=== PATIENT | female | born 1990 | race Caucasian/White ===

== ENCOUNTER 2021-07-13 10:24 | Emergency (ER) | payer OTHER, SELFPAY ==
[2021-07-13 10:40] VITALS: BP 99/70; PULSE 83; RESP 16; TEMP 36.6; O2SAT 100
--- NOTE | 2021-07-13 11:40 | ED.URI ---
HPI - URI/Sore Throat General Chief Complaint: Headache Stated Complaint: hot achey headache Source: patient and RN notes reviewed Mode of arrival: ambulatory History of Present Illness HPI Narrative: This is a 30-year-old female that presented to urgent care with complaints of headache, nausea vomiting, fatigue, lymph node enlargement, she notes it feels like pins are in her skin. 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 She has not been vaccinated. The patient denies SOB, CP, palpitation, extremity numbness, lightheadedness, dizziness, constipation, diarrhea, chills, or fever. She did recently get treated for sinus infection with Augmentin. Related Data Home Medications Medication Instructions Recorded Confirmed bupropion HCl 100 mg PO TID 07/13/21 07/13/21 hydroxyzine HCl 25 mg PO TID PRN 07/13/21 07/13/21 Allergies Allergy/AdvReac Type Severity Reaction Status Date / Time No Known Allergies Allergy Verified 07/13/21 10:47 Review of Systems Review of Systems: A 14 organ system Review of Systems was performed and pertinent positives included in the HPI, otherwise remaining ROS is negative. [facility] Family History Family History (Updated 07/13/21 @ 11:41 by LEELEE Winkler) Other Family history non-contributory Exam Narrative: GENERAL: This is a well-nourished, well-developed patient, in no apparent distress. HEAD: normocephalic, atraumatic. EYES: PERRL. Sclera clear/white. Vision is grossly intact. EARS: External ears normal, auditory canals clear and without drainage, TMs normal without perforation. Hearing grossly intact. NOSE: External nose normal with no obvious nasal discharge, nares without redness, no rhinorrhea. THROAT: Mucous membranes moist, posterior pharynx with erythema. NECK: Neck supple, non-tender without lymphadenopathy, masses or thyromegaly. CARDIOVASCULAR: Regular rate and rhythm without murmurs, gallops, or rubs. RESPIRATORY: Clear to auscultation. Breath sounds equal bilaterally. No wheezes, rales, or rhonchi. GASTROINTESTINAL: Abdomen soft, non-tender, nondistended. Bowel sounds are active. No hepato-splenomegaly, or palpable masses. No guarding. SKIN: warm, intact with no suspicious lesions or rash, good texture and turgor. NEURO: awake, alert, and oriented to person, place and time. There were no obvious focal neurologic abnormalities. Steady gait EXTREMITIES: Normal range of motion. No edema. No calf tenderness. Negative Homans sign bilaterally. BACK: Nontender without deformity or crepitance. No flank tenderness. Course Course Emergency Course: Patient will discharge home with Flonase, Claritin, guaifenesin treated for viral infection Vital Signs Vital signs: Vital Signs Temperature 97.9 F 07/13/21 10:40 Pulse Rate 83 07/13/21 10:40 Respiratory Rate 16 07/13/21 10:40 Blood Pressure 99/70 L 07/13/21 10:40 Pulse Oximetry 100 07/13/21 10:40 Temperature 97.9 F 07/13/21 10:40 Pulse Rate 83 07/13/21 10:40 Respiratory Rate 16 07/13/21 10:40 Blood Pressure 99/70 L 07/13/21 10:40 Pulse Oximetry 100 07/13/21 10:40 MDM - URI/Sore Throat Differential Diagnosis Differential diagnosis: Likely upper respiratory infection, sinusitis and viral infection Discharge Plan Discharge Clinical Impression: Viral infection Patient Disposition: Home, Self-Care Condition: Stable Instructions: Antibiotic Form, Viral Syndrome (ED) Additional Instructions: This is likely viral illness, no antibiotic is needed at this time. Treatment is aimed toward your specific symptoms. You must treat your symptoms in order to feel better while the virus runs it's course. Recommend antihistamine such as Benadryl at night time and Claritin/Zyrtec/Betzy during the day Use inhaler as needed for cough, wheezing, shortness of breath or chest tightness. -Hot steamy showers in the morning to help open up your sinuses -Hot tea with lemon and honey. A teaspoon of honey may help as a
== END 2021-07-13 11:46 | disposition home or self-care (01) ==
PROVIDERS: Emergency Provider Nurse Practitioner
DX: B34.9 Viral infection, unspecified (principal); Z20.822 Contact with and (suspected) exposure to COVID-19
CPT/HCPCS: 99213; G0463

== ENCOUNTER → 2021-07-14 08:32 | Outpatient (CLI) | payer OTHER, SELFPAY ==
[2021-07-15 13:33] LABS: SARS-CoV-2 RNA PCR Positive
== END ==
PROVIDERS: Visit Provider Nurse Practitioner
DX: U07.1 COVID-19 (principal)
CPT/HCPCS: C9803; U0003; U0005

== ENCOUNTER 2023-03-19 10:19 | Emergency (ER) | payer OTHER, SELFPAY ==
--- NOTE | ~2023-03-19 | XR_ITS ---
EXAMINATION: XR chest 2V DATE: 03/19/2023 10:57 INDICATION: Shortness of breath and fatigue TECHNIQUE: PA and lateral views of the chest are obtained. COMPARISON: None available FINDINGS: The lungs are free of acute opacities. No pleural effusion or pneumothorax. The cardiomedia stinal silhouette is normal. The visualized bones and soft tissues are unremarkable. IMPRESSION: 1. No acute cardiopulmonary abnormality. Reviewed, dictated and finalized at location A.
[2023-03-19 10:31] VITALS: BP 106/63; PULSE 78; RESP 20; TEMP 36.7; O2SAT 100
--- NOTE | 2023-03-19 10:49 | ED.GENADULT ---
HPI - General Adult General Chief complaint: Upper Respiratory Infection Stated complaint: shortness of breath,fatigue,flu Source: patient Mode of arrival: ambulatory Limitations: no limitations History of Present Illness HPI narrative: Patient presents for evaluation of sick symptoms for last few weeks. She tested positive for influenza a on 03/09/2023. She had nausea, vomiting, diarrhea at that time. She states now her primary symptoms are fever, headache, hot flashes, productive cough of brown sputum with associated shortness of breath. She still has some diarrhea and nausea but vomiting has resolved. She is not taking any medications to assist with her symptoms. She does smoke marijuana. She had a negative COVID test on 03/09/23. Surgical history includes tonsillectomy. Related Data Home Medications Medication Instructions Recorded Confirmed No Home Medications 03/19/23 03/19/23 Allergies Allergy/AdvReac Type Severity Reaction Status Date / Time No Known Allergies Allergy Verified 03/19/23 10:26 Review of Systems Review of Systems: CONSTITUTIONAL: Reports fever. Denies chills EYES: Denies visual changes, redness, or discharge. ENT: Denies rhinorrhea, congestion, sore throat, or otalgia. CARDIOVASCULAR: Denies chest pain, palpitations, or edema. RESPIRATORY: Denies cough or dyspnea. GASTROINTESTINAL: Denies abdominal pain, nausea, vomiting, or diarrhea. GENITOURINARY: Denies dysuria or hematuria. SKIN: Denies rash or itching. MUSCULOSKELETAL: Denies back pain, joint pain, or myalgia. NEUROLOGIC: Denies headache, numbness, dizziness, or weakness. PSYCHIATRIC: Denies anxiety or depression. [facility] Past Medical History Medical History No pertinent past medical history Surgical History Surgical History No pertinent past surgical history Family History Family History Mother Family history non-contributory Social History Social History Substance use: current Substance use type: marijuana Living arrangements: alone Gender identity (if verbalized by the patient): Female Spiritual care concerns: No Exam Narrative: GENERAL: Well-appearing, well-nourished, and in no acute distress. HEAD: Normocephalic, atraumatic. EYES: PERRLA and EOMI. ENT: Nares clear, no rhinorrhea or epistaxis. Mucous membranes moist. Tonsils are absent. There is mild posterior pharyngeal erythema. Bilateral TMs pearly alicea nonbulging NECK: Supple. No adenopathy or masses. No carotid bruits or JVD CHEST: Clear to auscultation. No respiratory distress. No wheezes rales or rhonchi HEART: Regular rate and rhythm. No murmur heard. Normal peripheral pulses. ABDOMEN: Soft, nontender, nondistended, normal active bowel sounds. EXTREMITIES: Normal range of motion. No edema. SKIN: Warm, dry, no rash. NEURO: No focal deficits. Alert and oriented x3. PSYCH: Normal mood and affect. Course Course Emergency Course: This is a 32-year-old female who presented for evaluation of sick symptoms. COVID and influenza were negative. Chest x-ray negative. Exam is consistent with acute viral syndrome. Recommend [id number] agents for symptom management. She already has zofran at home. Increase hydration. Follow up primary provider. Go to emergency department for worsening symptoms. Patient in agreement with plan of care Level of Care: Express Care Visit Vital Signs Vital signs: Vital Signs Temperature 36.7 C 03/19/23 10:31 Pulse Rate 78 03/19/23 10:31 Respiratory Rate 20 03/19/23 10:31 Blood Pressure 106/63 03/19/23 10:31 Pulse Oximetry 100 03/19/23 10:31 Oxygen Delivery Room Air 03/19/23 10:31 Temperature 36.7 C 03/19/23 10:31 Pulse Rate 78
== END 2023-03-19 11:25 | disposition home or self-care (01) ==
PROVIDERS: Emergency Provider Nurse Practitioner
DX: B34.9 Viral infection, unspecified (principal); Z20.822 Contact with and (suspected) exposure to COVID-19; F12.90 Cannabis use, unspecified, uncomplicated
CPT/HCPCS: 71046; 87426; 87804; 99213; C9803; G0463

== ENCOUNTER 2023-06-19 17:08 | Emergency (ER) | payer OTHER, SELFPAY ==
[2023-06-19 17:12] VITALS: BP 106/46; PULSE 93; RESP 18; TEMP 36.7; O2SAT 99
--- NOTE | 2023-06-19 17:55 | ED.ABDPAIN ---
HPI - Abdominal Pain General Chief Complaint: Abdominal Pain Stated Complaint: abd pain Source: patient Mode of arrival: ambulatory Limitations: no limitations History of Present Illness HPI narrative: Patient presents for evaluation of right lower quadrant abdominal pain for last 2-3 days. Pain is constant, cramping, rated 6 to 7/10 severity. She reports nausea without vomiting. She has experienced diarrhea. No blood or mucus in the stool. No urinary symptoms. No vaginal bleeding or discharge. She indicates no chance of as she is not sexually active with men. She has actually not been sexually active recently. No history of similar symptoms. Related Data Home Medications Medication Instructions Recorded Confirmed No Home Medications 03/19/23 06/19/23 Allergies Allergy/AdvReac Type Severity Reaction Status Date / Time No Known Allergies Allergy Verified 03/19/23 10:26 Review of Systems Review of Systems: CONSTITUTIONAL: Denies fever, chills, or sweats. EYES: Denies visual changes, redness, or discharge. ENT: Denies rhinorrhea, congestion, sore throat, or otalgia. CARDIOVASCULAR: Denies chest pain, palpitations, or edema. RESPIRATORY: Denies cough or dyspnea. GASTROINTESTINAL: Reports right lower quadrant abdominal pain, diarrhea and nausea. Denies vomiting GENITOURINARY: Denies dysuria or hematuria. SKIN: Denies rash or itching. MUSCULOSKELETAL: Denies back pain, joint pain, or myalgia. NEUROLOGIC: Denies headache, numbness, dizziness, or weakness. PSYCHIATRIC: Denies anxiety or depression. [facility] Past Medical History Medical History No pertinent past medical history Surgical History Surgical History No pertinent past surgical history Family History Family History Mother Family history non-contributory Social History Social History Substance use: current Substance use type: marijuana Living arrangements: alone Gender identity (if verbalized by the patient): Female Spiritual care concerns: No Exam Narrative: GENERAL: Well-appearing, well-nourished, and in no acute distress. HEAD: Normocephalic, atraumatic. EYES: PERRLA and EOMI. ENT: Nares clear, no rhinorrhea or epistaxis. Mucous membranes moist. Oropharynx without tonsillar hypertrophy exudate or other lesions. Bilateral TMs pearly alicea nonbulging NECK: Supple. No adenopathy or masses. No carotid bruits or JVD CHEST: Clear to auscultation. No respiratory distress. No wheezes rales or rhonchi HEART: Regular rate and rhythm. No murmur heard. Normal peripheral pulses. ABDOMEN: Soft, nondistended, normal active bowel sounds. Right lower quadrant tenderness without rebound or guarding. EXTREMITIES: Normal range of motion. No edema. SKIN: Warm, dry, no rash. NEURO: No focal deficits. Alert and oriented x3. PSYCH: Normal mood and affect. Course Course Emergency Course: This is a 32-year-old female who presented for evaluation of right lower quadrant pain. No evidence of infection in her urine today. She is not . I recommended she go to the hospital for further workup including labs and imaging. She was agreeable to plan. She requested be evaluated at [facility]. I contacted [facility] and spoke with RN, Indira. She indicates that Dr Hurtado will agree to accept pt to Dept there. Patient was updated throughout her stay here and was in agreement plan of care, including plans for transfer. Level of Care: Express Care Visit Vital Signs Vital signs: Vital Signs Temperature 36.7 C 06/19/23 17:12 Pulse Rate 93 06/19/23 17:12 Respiratory Rate 18 06/19/23 17:12 Blood Pressure 106/46 L 06/19/23 17:12 Pulse Oximetry 99 06/19/23 17:12 Oxygen Del
== END 2023-06-19 17:50 | disposition short-term general hospital (02) ==
PROVIDERS: Emergency Provider Nurse Practitioner
DX: R10.31 Right lower quadrant pain (principal); Z20.822 Contact with and (suspected) exposure to COVID-19
CPT/HCPCS: 81003; 87426; 87804; 99213; C9803; G0463

== ENCOUNTER 2024-10-16 08:35 | Outpatient (CLI) | payer OTHER, SELFPAY ==
--- OUTSIDE RECORDS SUMMARY | 2024-10-16 08:49 | XMS_ITS | Encounter Summary ---
Author Organization [facility] Address [address] [place] [address] Care Team Providers Care Top Stitcher Name Role Phone Kat Morrell MD Primary Care Provider [phone] Alicia Flowers Primary Care Provider + Rosalia Ridley DO Primary Care Provider [phone] Delio Rdz MD Unavailable [phone] No, Physician Primary Care Provider [phone] Tara Aaron NP Primary Care Provider Mumtaz Bruce NP Unavailable [phone] Encounter Details Date Type Department Care Team (Late st Contact Info) Description 02/15/2020 E-Visit [facility]/ Physicians [address] [place] [address] Mya Tyler, BUSINESS PROCESS COORDINATOR [address] [address] RE: E-Visit Submission: Cough Social History Tobacco Use Types Packs/Day Years Used Date Smoking Tobacco: Never Smokeless Tobacco: Never Alcohol Use Standard Drinks/Week Comments Yes 2 (1 standard drink = 0.6 oz pur e alcohol) AUDIT-C Answer Date Recorded Frequency of Alcohol Consumption 2-4 times a tue11/08/2018 Average Number of Drinks 3 or 4 019 Frequency of Binge Drinking Not on file 10/17 PHQ-2 Answer Date Recorded PHQ-2 Score 0 04/03/2019 Comments No Sex and Gender Information Value Date Recorded Sex Assigned at Not on file Legal Sex Female 11:56 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 Gender Identity Not on file Sexual Orientation Lesbian 07/27/2020 11 :23 AM CHEMICAL PLANT OPERATOR SUPERVISOR documented as of this encounter Plan of Treatment Not on file documented as of this encounter Visit Diagnoses Diagnosis Cough documented in this encounter Additional Health Concerns Infection Onset Date Last Indicated Resolved Time COVID: Suspected 10/02/2020 10/02/2020 10/16/2020 3:07 AM CDT COVID: Suspected 06/07/2021 06/07/2021 06/07/2021 11:33 AM CHEMICAL PLANT OPERATOR SUPERVISOR COVID: Suspected 12/25/2021 12/25/2021 12/25/2021 10:59 AM CDT COVID19 12/25/2021 12/25/2021 01/04/2022 3:05 AM CDT COVID: Recovered Comment:Added based on recent COVID infection. 01/04/2022 01/05/2022 05/04/2022 3:05 AM C DT COVID: Suspected 04/29/2022 04/29/2022 04/29/2022 10:37 AM CDT Influenza, adult 04/29/2022 04/29/2022 05/06/2022 3:05 AM CDT COVID: Suspected 06/14/2022 06/14/2022 06/14/2022 11:33 AM CHEMICAL PLANT OPERATOR SUPERVISOR COVID: Suspected 06/14/2022 06/14/2022 06/14/2022 4:10 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 COVID: Suspected 07/06/2022 07/06/2022 07/06/2022 10:49 AM CHEMICAL PLANT OPERATOR SUPERVISOR COVID: Suspected 10/07/2022 10/07/2022 10/07/2022 10:29 AM CDT COVID: Suspected 01/31/2023 01/31/2023 01/31/2023 3:41 PM CDT COVID: Suspected 03/09/2023 03/09/2023 03/09/2023 9:55 AM CDT Influenza, adult 03/09/2023 03/09/2023 03/16/2023 3:05 AM CDT COVID: Suspected 04/18/2023 04/18/2023 04/18/2023 12:44 PM CDT COVID: Suspected 07/08/2023 07/08/2023 07/08/2023 1:02 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 COVID: Suspected 07/08/2023 07/08/2023 07/08/2023 6:01 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 documented as of this encounter Care Teams Top Stitcher Relationship Specialty Start Date End Date Kat Morrell MD PCP - General Family Medicine 11/08/18 05/19/20 Alicia Flowers PA PCP - General Family Medicine 05/20/20 04/09/24 Rosalia Ridley DO [address] [place] [address] PCP - General Family Medicine 04/10/24 04/25/24 No, Physician PCP - General 05/04/24 05/08/24 Tara Aaron NP [address] [place] [address] PCP - General Family Medicine 05/09/24 Delio Rdz MD [address] [place] [address] Orthopedic Surgery 04/10/24 Mumtaz Bruce, SLICK [address] [place] [address] Nurse Practitioner Internal Medicine 05/09/24 documented as of this encounter
--- OUTSIDE RECORDS SUMMARY | 2024-10-16 08:49 | XMS_ITS | Encounter Summary ---
Author Organization [facility] Address [address] [place] [address] Care Team Providers Care Bell Spinner Name Role Phone Delio Rdz MD Unavailable Tara Aaron NP Primary Care Provider Mumtaz Bruce NP Unavailable [phone] Encounter Details Date Type Department Care Team (Late st Contact Info) Description 10/15/2024 Plan of Care Documentation [facility] Physical Therapy [address] [place] [address] [id number] Social History Tobacco Use Types Packs/Day Years Used Date Smoking Tobacco: Never Smokeless Tobacco: Never Alcohol Use Standard Drinks/Week Comments Not Currently 2 (1 standard drink = 0.6 oz pur e alcohol) occ AUDIT-C Answer Date Recorded Q1: How often do you have a drink containing alcohol? Never 05/09/2024 Q2: How many drinks containi ng alcohol do you have on a typical day when you are drinking? Patient does not drink Q3: How often do you have si x or more drinks on one occasion? Never 05/09/2024 PHQ-2 Answer Date Recorded PHQ-2 Total Score (If total score is 3 or more points, staff should administer the PHQ-9) 6 05/09/2024 Personal Safety Answer Date Recorded Have you ever been in or are you currently in a harmful physical or emotional relationship or is someone making you feel afraid or unsafe? 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 Gender Identity Not on file Sexual Orientation Lesbian 07/27/2020 11 :23 AM LIME BURNER documented as of this encounter Plan of Treatment Not on file documented as of this encounter Visit Diagnoses Not on filedocumented in this encounter Care Teams Bell Spinner Relationship Specialty Start Date End Date Tara Aaron, FAMILY LAWYER [address] [place] [address] [address] [place] [address] PCP - General Family Medicine 05/09/24 Delio Rdz MD [address] [place] [address] Orthopedic Surgery 04/10/24 Mumtaz Bruce NP [address] [place] [address] [address] [place] [address] Nurse Practitioner Internal Medicine 05/09/24 documented as of this encounter
--- OUTSIDE RECORDS SUMMARY | 2024-10-16 08:49 | XMS_ITS | Referral Summary ---
Author Organization [facility] the [facility] Address [address] [place] [address] Care Team Providers Care Replanting Machine Operator Name Role Phone Delio Rdz MD Unavailable [phone] Tara Aaron NP Primary Care Provider Mumtaz Bruce NP Unavailable [phone] Encounters Date Type Department Care Team Description 10/15/2024 8:30 AM CDT Therapy [facility] [address] [place] [id number] Ping Godoy, PT Right shoulder pain, unspecified chronicity (Primary Dx); Tear of right rotator cuff, unspecified tear extent, unspecified whether traumatic; Other specified disorders of tendon, right shoulder 10/10/2024 11:00 AM CDT Therapy [facility] [address] [place] [id number] Ping Godoy, PT Right shoulder pain, unspecified chronicity (Primary Dx); Tear of right rotator cuff, unspecified tear extent, unspecified whether traumatic; Other specified disorders of tendon, right shoulder 10/01/2024 10:30 AM CDT Therapy [facility] [address] [place] [id number] Ping Godoy, PT Right shoulder pain, unspecified chronicity (Primary Dx); Tear of right rotator cuff, unspecified tear extent, unspecified whether traumatic; Other specified disorders of tendon, right shoulder 09/24/2024 10:15 AM CDT Therapy [facility] [address] [place] [address] Ping Godoy, PT Right shoulder pain, unspecified chronicity (Primary Dx); Tear of right rotator cuff, unspecified tear extent, unspecified whether traumatic; Other specified disorders of tendon, right shoulder 09/20/2024 9:30 AM ENTRY LEVEL MANAGEMENT Therapy [facility] [address] [place] [address] Ping Godoy, PT Right shoulder pain, unspecified chronicity (Primary Dx); Tear of right rotator cuff, unspecified tear extent, unspecified whether traumatic; Other specified disorders of tendon, right shoulder 10/15/2024 Plan of Care Documentation [address] [address] 09/18/2024 10:30 AM ENTRY LEVEL MANAGEMENT Therapy [facility] [address] [place] [address] 285[address] Ping Godoy, PT Right shoulder pain, unspecified chronicity (Primary Dx); Tear of right rotator cuff, unspecified tear extent, unspecified whether traumatic; Other specified disorders of tendon, right shoulder 09/13/2024 11:15 AM ENTRY LEVEL MANAGEMENT Therapy [facility] [address] [place] [address] Ping Godoy, PT Right shoulder pain, unspecified chronicity (Primary Dx) 09/11/2024 10:30 AM ENTRY LEVEL MANAGEMENT Therapy [facility] [address] [place] [address] 82568 Ping Godoy, PT Tear of right rotator cuff, unspecified tear extent, unspecified whether traumatic (Primary Dx); Other specified disorders of tendon, right shoulder 09/07/2024 8:00 AM ENTRY LEVEL MANAGEMENT Therapy [facility] [address] [place] [address] Ping Godoy, PT Tear of right rotator cuff, unspecified tear extent, unspecified whether traumatic (Primary Dx); Other specified disorders of tendon, right shoulder 08/31/2024 7:45 AM ENTRY LEVEL MANAGEMENT Therapy [facility] [address] [place] [address] [phone] Ping Godoy, PT Tear of right rotator cuff, unspecified tear extent, unspecified whether traumatic (Primary Dx) 08/17/2024 9:30 AM ENTRY LEVEL MANAGEMENT Therapy [facility] [address] [place] [address] Archana Hammonds, PT Other specified disorders of tendon, right shoulder (Primary Dx) 08/13/2024 1:45 PM ENTRY LEVEL MANAGEMENT Therapy [facility] [address] [place] [address] Angelica Bush, PHOTOGRAPHY PROFESSOR Other specified disorders of tendon, right shoulder (Primary Dx) 08/08/2024 10:15 AM ENTRY LEVEL MANAGEMENT Therapy [facility] [address] [place] [address] 564[address] Ping Godoy, PT Other specified disorders of tendon, right shoulder (Primary Dx) 08/06/2024 11:30 AM ENTRY LEVEL MANAGEMENT Therapy [facility] [address] [place] [address] 49898 Ping Godoy, PT Other specified disorders of tendon, right shoulder (Primary Dx) 07/30/2024 10:15 AM ENTRY LEVEL MANAGEMENT Therapy [facility] [address] [place] [address] Ping Godoy, PT Other specified disorders of tendon, right shoulder (Primary Dx) 07/26/2024 1:00 PM ENTRY LEVEL MANAGEMENT Therapy [facility] [address] [place] [address]18[address] Ping Godoy, PT Other specified disorders of tendon, right shoulder (Primary Dx) from Last 3 Months Allergies Active Allergy Reactions Criticality Noted Date Comments Haloperidol Swelling Medium 05/22/2020 Paliperidone Other (See comments) High 10/27/2010 galactorrhea Medications cetirizine (ZyrTEC) 10 mg tabletIndicatio ns:Non-seasonal allergic rhinitis due to other allergic trigger Take 1 tablet (10 mg total) by mouth daily as needed for allergies 90 tablet 1 4 04/10/20 25 Active Additional Information Patient not taking.Reported on 05/09/2024 meloxicam (MOBIC) 15 mg tablet Take 1 tablet (15 mg total) by mouth daily Active Active Problems Problem Noted Date Diagnosed Date Preventative health care 05/09/2024 Assessment & Plan (05/09/2024 4:36 PM CDT): - New or chronic worsening conditions: no significant acute issues on this visit - Mental health: stable mental health conditions - Dental health: Up to date with regular dental care and cleaning. Discussed importance of regular tooth brushing, flossing, and dental visits. - Nutrition: Stressed importance of moderation in sodium/caffeine intake, saturated fat and cholesterol, caloric balance, sufficient intake of fresh fruits, vegetables - Exercise: Stressed the importance of regular exercise - Immunizations: Age and sex appropriate immunizations reviewed and offered - Cervical Cancer screening: Due now, referral placed - Breast Cancer screening: Not indicated at this time - Colon cancer screening: Not indicated at this time - Lung cancer screening: Not indicated at this time - Bone desnity/osteoporosis screening: Not indicated at this time - control: None Overweight with body mass in dex (BMI) of 27 to 27.9 in adult 05/09/2024 Assessment & Plan (05/09/2024 4:32 PM CDT): Wt Readings from Last 3 Encounters: 05/09/24 63.1 kg (139 lb 1.6 oz) 04/10/24 63.3 kg (139 lb 9.6 oz) 10/09/23 63.5 kg (140 lb) Body mass index is 27.17 kg/m . -Stable, at goal of <30 bmi -Discussed recommendations for exercise at least 30 minutes moderate to vigorous exercise as tolerated most days of the week. (minimum 150 minutes weekly) -Discussed importance of well-balanced diet Musculoskeletal hypermobility 05/09/2024 Assessment & Plan (05/09/2024 5:13 PM CDT): -chronic, stable -currently uses meloxicam as needed for joint pain -patient reports she has been tested previously for conditions related to hypermobility, including Yinka-Danlos which she states she was told she does not meet the criteria for Yinka-Danlos but have several of the symptoms related to -patient does follow with orthopedics -encouraged patient to reach out to specialist as needed -continue current treatment plan Autism spectrum disorder 05/09/2024 Assessment & Plan (05/09/2024 5:10 PM CDT): -chronic, stable -currently does not take any medication for this -previously diagnosed with psychiatry -patient does express interest in having an evaluation by a neuro psychologist - referral placed -continue current treatment plan Psoriatic arthritis 05/09/2024 Assessment & Plan (05/09/2024 5:11 PM CDT): -chronic, stable -currently uses meloxicam as needed for joint pain -patient reports previously being tested for autoimmune conditions; but it has been a long-time since -patient reports she has not seen a art education professor in quite awhile, but would be interested in reestablishing care -referral to Rheumatology placed -continue current treatment plan POTS (postural orthostatic tachycardia syndrome) 05/09/2024 Assessment & Plan (05/09/2024 5:02 PM CDT): -chronic, stable -follows with cardiology -currently does not take medication for this -encouraged patient to follow up with specialists as needed -continue current treatment plan Fatigue 04/10/2024 Assessment & Plan (05/09/2024 5:14 PM CDT): -recent complaint, unchanged -patient had reported an increase in fatigue to previous PCP -lab work was ordered as part of evaluation, but patient reports she has not completed it yet -encouraged patient to complete lab work as part of evaluation -will determine further management once results are available -continue current treatment plan Assessment & Plan (04/10/2024 3:04 PM CDT): Labs ordered, will follow. Reassurance given, and patient encouraged to rest when she can. Allergic rhinitis due to allergen 04/10/2024 Assessment & Plan (04/10/2024 3:04 PM CDT): Encouraged patient to treat her allergy flare as this can also contribute to fatigue. Patient will restart Zyrtec. Postural dizziness with near syncope 05/30/2023 Borderline personality disorder 08/24/2022 MAL (generalized anxiety disorder) 08/24/2022 Assessment & Plan (05/09/2024 5:07 PM CDT): -chronic, stable -patient currently does not take medication for this -previously has taken sertraline, Wellbutrin, BuSpar, Trintellix -patient reports her anxiety/depression doing fine without medication, and she would prefer to not take any medication at this time -patient denies any worsening of depressed mood, thoughts of harming herself or others, or worsening anxiety -continue current treatment plan Irregular menses 01/11/2019 Recurrent major depressive disorder, in remissio n 06/22/2018 Assessment & Plan (05/09/2024 5:06 PM CDT): -chronic, stable -patient currently does not take medication for this -previously has taken sertraline, Wellbutrin, BuSpar, Trintellix -patient reports her anxiety/depression doing fine without medication, and she would prefer to not take any medication at this time -patient denies any worsening of depressed mood, thoughts of harming herself or others, or worsening anxiety -continue current treatment plan Guttate psoriasis 09/30/2017 Assessment & Plan (02/05/2019 6:00 AM CDT): Stable Cont humira per derm Attention deficit hyperactivity disorder (ADHD) 08/25/2011 Assessment & Plan (05/09/2024 5:07 PM CDT): -chronic, stable -currently does not take medication for this -previously followed with psychiatry -previously tried Adderall -patient reports struggling mostly with inattentiveness -patient reports their ADHD is stable at this time without medication -encourage patient to make lifestyle modifications such as to do lists and reminder alarms -continue current treatment plan OCD (obsessive compulsive disorder) 02/17/2010 Assessment & Plan (05/09/2024 5:08 PM CDT): -chronic, stable -currently does not take medication for this -previously followed with Psychiatry -patient reports her OCD is stable at this time without medication -encouraged patient to reach out to office if her OCD symptoms worsened -continue current treatment plan Resolved Problems Problem Noted Date Diagnosed Date Resolved Date Partial thickness rotator cuff tear 04/04/2023 05/09/2024 Near syncope 02/24/2023 05/09/2024 Tendinitis of right rotator cuff 12/01/2022 05/09/2024 Pain in joint of right shoulder 11/16/2022 05/09/2024 AC separation, right, subsequent encounter 02/08/2022 05/09/2024 Assessment & Plan (11/10/2022 4:43 PM CDT): Pain and ROM improved overall Seeing specialist 11/16/22 Sprain of elbow, right 02/08/202205/09 Tendinitis of thumb 02/08/2022 05/09/20 Concussion with no loss of consciousness 02/12/2021 05/09/2024 Post concussion syndrome 11/20/2020 Assessment & Plan (01/26/2021 5:01 PM CDT): We have had a difficult time finding a neurologist that will take patient's WC case. Getting set up with neurologist in [place], [place] - pending appointment. Patient remains off work at this time until further neurological eval can be completed. However, we did discuss her returning to work prior to neuro eval if symptoms resolved. Since symptoms not improved as expected, will proceed with Mri brain Assessment & Plan (12/03/2020 2:03 PM CDT): Still not recovering in a timely manner No change in symptoms since last visit Still with diplopia/visual changes Neurology referral placed, pending appointment For now, remains off work Assessment & Plan (11/20/2020 4:26 PM CDT): Slow improvement Continue concussion precautions Not yet cleared to return to work Limit screen time F/u 1-2 weeks, I suspect she will be ready to return to work then Acute lymphadenitis of neck 10/18/2019 05/20/2020 Sore throat 04/10/2019 05/20/2020 Assessment & Plan (05/15/2019 1:06 PM CDT): Order mono test Acute recurrent maxillary sinusitis 01/11/2019 05/20/2020 Closed fracture of left distal fibula 11/22/2018 03/22/2019 Moderate mixed bipolar I disorder 11/02/2010 05/09/2024 Assessment & Plan (09/23/2022 4:22 PM ENTRY LEVEL MANAGEMENT): Stable, no changes. Continue current regimen with sertraline Immunizations Immunization Administration Dates Next Due DTP 02/24/1993,1992,1992 HiB 02/24/1993,1992,1992 Influenza, Unspecified 05/09/2024(Deferr ed: Patient Refused),04/17/2023(Deferred: Patient Refused),04/17/2022(Deferred: Patient Refused),04/17/2022(Deferred: Patient Refused),04/17/2021(Deferred: Patient Refused),04/17/2020(Deferred: Patient Refused),04/17/2019(Deferred: Patient Refused),04/17/2019(Deferred: Patient Refused) OPV 1992,1992 Social History Tobacco Use Types Packs/Day Years Used Date Smoking Tobacco: Never Smokeless Tobacco: Never Tobacco Cessation:Counseling Given: Not Answered Alcohol Use Standard Drinks/Week Comments Not Currently [...] on file Legal Sex Female 11:56 PM ENTRY LEVEL MANAGEMENT Gender Identity Not on file Sexual Orientation Lesbian 07/27/2020 11 :23 AM ENTRY LEVEL MANAGEMENT Last Filed Vital Signs Vital Sign Reading Time Taken Comments Blood Pressure 111/75 05/09/2024 2:06 PM CDT Pulse 78 05/09/2024 2:06 PM CDT Temperature 36.5 C (97.7 F) 04/10/2024 9:07 AM CDT Respiratory Rate 16 05/09/2024 2:06 PM CDT Oxygen Saturation 98% 05/09/2024 2:06 PM CDT Inhaled Oxygen Concentration - - Weight 63.1 kg (139 lb 1.6 oz) 05/09/2024 2:06 P M CDT Height 152.4 cm (5') 05/09/2024 2:06 PM CDT Body Mass Index 27.17 05/09/2024 2:06 PM CDT Plan of Treatment Not on file Insurance [facility] Care Teams Replanting Machine Operator Relationship Specialty Start Date End Date Tara Aaron NP [address] [place] [address] [place] [address] PCP - General Family Medicine 05/09/24 Delio Rdz MD [address] [place] [address] Orthopedic Surgery 04/10/24 Mumtaz Bruce NP [address] [place] [address] [place] [address] Nurse Practitioner Internal Medicine 05/09/24
--- OUTSIDE RECORDS SUMMARY | 2024-10-16 08:49 | XMS_ITS | Clinical Summary ---
Author Organization [facility] Address [address] [place] [address] Care Team Providers Care Market Research Executive Name Role Phone Unavailable Primary Care Provider Unavailabl e Source Comments [facility],non-owned Affiliates and Associated Physician Practices is amultiple site organization consisting of ambulatory clinics and hospital sitesin [place], [place]. This disclosure is being madepursuant to the Care Everywhere program and may not contain all information available regarding this patient. Last updated 18.[facility] Social History Tobacco Use Types Packs/Day Years Used Date Smoking Tobacco: Never Assessed PHQ-2 Answer Date Recorded PHQ2 TOTAL SCORE 6 06/18/2021 Sex and Gender Information Value Date Recorded Sex Assigned at Not on file Gender Identity Not on file Sexual Orientation Not on file Plan of Treatment Health Maintenance Due Date Last Done Comments PAP SMEAR 1992 HIV SCREENING 2007 HEPATITIS C SCREENING 08/08/2010 DTAP/TDAP/TD VACCINES (1 - Tdap) 2011 HEPATITIS B VACCINE (1 of 3 - 19+ 3-dose series) 2011 COVID-19 VACCINE ( - 2023-2 5 season) 2024 INFLUENZA VACCINE (#1) 2024 DEPRESSION SCREENING 07/18/2024 ZOSTER VACCINE (1 of 2) 2042 HIB VACCINE Aged Out No longer eligi ble based on patient's age to complete this topic HPV VACCINE Aged Out No longer eligi ble based on patient's age to complete this topic MENINGOCOCCAL (Group B) VACC INE SHARED DECISION-MAKING Aged Out No longer eligibl e based on patient's age to complete this topic MENINGOCOCCAL GROUPS A/C/Y/W VACCINE Aged Out No longer eligible b ased on patient's age to complete this topic PNEUMOCOCCAL VACCINE Aged Out No long er eligible based on patient's age to complete this topic
--- OUTSIDE RECORDS SUMMARY | 2024-10-16 08:49 | XMS_ITS | Patient Health Record ---
Author Organization [facility] Address [address] [place], [place] [address] Care Team Providers Care Laminated Plastics Assembler And Gluer Name Role Phone Yusra Azul Unavailable [phone] REASON FOR REFERRAL No Information MEDICATIONS Medication SIG (Take, Route, Frequency, Duration) Notes Start Date End Date Status Albuterol (Eqv-ProAir HFA) 90 mcg/inh 2 puff(s) inhaled every 6 hours for 30 day(s) Active SOCIAL HISTORY Tobacco Use: Social History Observation Description Date Details (start date - stop date) Never Smoker NA - NA Sex Assigned At : Social History Observation Description Sex Assigned At Unknown Tobacco Use: Question Answer Notes Smoking Status nonsmoker PROBLEMS Problem Type ICD Code Onset Dates Problem Status W/U Status Risk SNOMED Code Notes Problem Psoriasis (L40.9) Active confirmed 9014 002 Problem Bipolar 1 disorder, depressed (F31.9) Active confirmed 89436284 Problem Sleeping difficulties (G47.9) Active confirmed 463857626 Problem Polyarthralgia (M25.50) Active confirmed 84006887 Problem Low back pain at multiple sites (M54.5) Active confirmed 219696901 PLAN OF TREATMENT Pending Test Test Name Order Date CPK Total,Serum 06/03/2020 Complement C4, Serum 06/03/2020 Complement, Total (CH50) 06/03/2020 Aldolase 06/03/2020 TSH 06/03/2020 CBC With Differential/Platelet 0 Sed Rate - Westergren 06/03/2020 Complement C3, Serum 06/03/2020 Rheumatoid Arthritis Factor 06/03/2020 C-Reactive Protein, Quant 06/03/2020 HLA B 27 Disease Association 06/03/2020 CCP IgG Antibodies 06/03/2020 Comp. Metabolic Panel (14) 06/03/2020 MABLE Panel (MABLE+ROSALVA+Scl 70+SjoSSA+SjoSSB) 06/03/2020 X ray : Hand left- outside order X ray : Hand right- outside order 2019 X ray : SI joints- outside order Hepatitis Panel (4) (DO NOT USE) DS DNA-CRITHIDIA IFA W/REFLEX TO TITER-L [facility] 06/03/2020 X ray : Foot Left- outside order X ray : Foot Right- outside order 2019 Lab slip given 06/03/2020 Urinalysis, Complete 06/03/2020 VITAMIN D 25 HYDROXY 06/03/2020 Insurance Providers Payer Name Payer Address Payer Phone Subscriber Number Group Number Insured Name Patient Relationship to Insured Coverage Start Date Coverage End Date [employer] CHOICE POS II [address] [place] [address] [id number] Margarita Guevara Self - patient is the insured 9 MEDICAL (GENERAL) HISTORY Surgical History Surgery Date(Month/Year) tonsillectomy 2203
--- OUTSIDE RECORDS SUMMARY | 2024-10-16 08:49 | XMS_ITS | Encounter Summary ---
Author Organization [facility] Address [address] [place] [address] Care Team Providers Care Manager Qa Name Role Phone Delio Rdz MD Unavailable [phone] Tara Aaron NP Primary Care Provider Mutmaz Bruce NP Unavailable [phone] Reason for Visit * Reason Comments PT Treatment * Consultation (Routine) - Authorized Specialty Diagnoses / Procedures Referred By Jack santos Referred To Contact Physical Therapy Diagnoses Other specified disorders of tendon, right shoulder Delio Rdz MD [address] [place] [address] Phone: tel: fax: [address] [phone] Referral ID Status Reason Start Date Expiration Date Visits Requested Visits Authorized [id number] Authorized Evaluate and Treat 03/06/2024 04/05/2025 60 60 Encounter Details Date Type Department Care Team (Late st Contact Info) Description 10/15/2024 8:30 AM CDT Therapy [facility] [address] [place] [id number] Ping Godoy, PT Right shoulder pain, unspecified chronicity (Primary Dx); Tear of right rotator cuff, unspecified tear extent, unspecified whether traumatic; Other specified disorders of tendon, right shoulder Social History Tobacco Use Types Packs/Day Years [...] on file Legal Sex Female 11:56 PM [employer] Gender Identity Not on file Sexual Orientation Lesbian 07/27/2020 11 :23 AM [employer] documented as of this encounter Progress Notes * Ping Godoy, PT - 10/15/2024 8:30 AM CDT Physical Therapy Visit Patient: Margarita Guevara 1990 Diagnosis: Other specified disorders of tendon, right shoulder (M67.813) Onset Date: 01/03/24 (surgery) Referring Provider: Delio Rdz MD Last PN: 09/18/24 Precautions: Autistic, POTS, Hypermobility HX: originally injured her R shoulder on 02/07/22 at work. 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 Pt had surgery on 01/03/24 to repair fraying of the biceps and upper border of the subscapularis, partial rotator cuff tear supraspinatus, and subacromial impingement. (Bicep tenodesis, debridement, subacromial decompression). Subjective: Pt states increased pain today. Pt feel the rainy weather affects her pain and due to her depression/anxiety/autism it affects her mentally as well. Pt feels hypersensitive to lights/sounds/sensations today. Pain prior to tx: 11/24 Objective: Treatment Provided: Precautions: Autistic, POTS, Hypermobility Pt has POTS, may have to use an incline for any supine ex's *indicates not performed this visit Pulleys flexion only x 10 each MHP x10' R shoulder, pt supine Manual: x12 total -PROM all plans right shoulder -Elevated R 1st rib, grade III infer mobs to correct this --not performed today Ktape to right shoulder: One vertical strip over the anterior right upper arm, biceps with proximalpull over the shoulder. One strip running medial to lateral horizontal across the anterior deltoid with a posterior pull. Below not performed today due to pt having increase pain and sensory issues today: Theraspine: -rows w/green band x10 -shoulder ext w/green band x10 -lat pull down w/green band x10 -shoulder ER w/red band x10 R -shoulder IR w/green x10 R Standing in front of raised table: -push up position, alternating shoulder taps x8 R/L -push ups x5 Sitting: -R bicep curls w/#3 x10 -R shoulder flex w/2# x10 -R shoulder abd w/2# x10 -R lat deltoid raises w/2# x10 -bilat shoulder horizontal abd/add w/red band x10 Supine: -R shoulder flex w/2# x4, decreased to 1# due to pain x6 L sidelying: -R shoulder abd w/2# x10 -R shoulder ER w/2# x10 Assessment: The pt tolerated treatment fair today. She reported slight decrease in pain after tx. Plan to continue skilled therapy to decrease pain and improve ROM/MMT. Plan: Received a new script to continue therapy. (54 total) Start Time: 837 (pt arrived late) End Time: 915 Ping Godoy PT, MPT documented in this encounter Plan of Treatment Not on file documented as of this encounter Visit Diagnoses Diagnosis Right shoulder pain, unspecified chronicity- Primary Tear of right rotator cuff, unspecified tear extent, unspecified whether traumatic Other specified disorders of tendon, right shoulder documented in this encounter Care Teams Manager Qa Relationship Specialty Start Date End Date Tara Aaron GEOMETRICIAN [address] [place] [address] PCP - General Family Medicine 05/09/24 Delio Rdz MD [address] [place] [address] Orthopedic Surgery 04/10/24 Mumtaz Bruce NP [address] [place] [address] Nurse Practitioner Internal Medicine 05/09/24 documented as of this encounter
--- OUTSIDE RECORDS SUMMARY | 2024-10-16 08:49 | XMS_ITS | Data Portability ---
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 She has a history of a arthroscopy, debridement, rotator cuff repair with patch on 01/03/2024. She reports minimal pain 07/27. Not taking any medications. She has only attended 2 physical therapy sessions as it took a long time for it to get approved by [employer]. She would like to go back to work if possible. Incisions are clean dry intact, well healed. She has no tenderness. No pain with gentle range of motion. ROM 100/20/back pocket. She is still very weak and unable to perform full ROM. We discussed that it is important for her to attend therapy and also do the exercises at home on her own to catch up. We can release her for desk work only. Follow up in another 6 weeks. She is in agreement with the plan. Not available 03/28/2024 16:11:27 05/09/2024 05/09/2024 33-year-old female presents for follow-up of her right shoulder status post arthroscopy, debridement, upper border of the subscap repair, and Regeneten repair of the supraspinatus, subacromial decompression, done on 01/03/2024. She reports she has been feeling better. She has been working with physical therapy. She currently rates her pain as 3 to 4/10, although she has some pain still when she is trying to lift, as well as some stiffness in the shoulder. She feels like she has difficulty with her work duties and still has to be on light duty. Incisions are well healed. She has some diffuse soreness and swelling around the shoulder. She is able to actively elevate to approximately 110 , external rotation to 20, internal rotation to back pocket. She has good rotator cuff strength, although soreness with elevation. She appears to be having some stiffness and weakness of her shoulder associated with inflammation with activities. We will give her some anti-inflammator ies an order for meloxicam and she can also use Voltaren gel. We will renew her physical therapy and she should continue work on range of motion strengthening. We will keep her on the same work status. We will have her follow-up in 2 months after next course physical therapy for recheck. She is in agreement with plan. [email or web address] Not available 05/10/2024 00:40:39 07/04/2024 07/04/2024 33-year-old female presents for follow-up of her right shoulder status post arthroscopy, debridement, upper border of the subscap repair, and Regeneten repair of the supraspinatus, subacromial decompression, done on 01/03/2024. She reports she has been feeling better since her last appointment. She has been working with physical therapy. She currently rates her pain as 3/10, although she has some pain still when she is trying to lift, as well as some stiffness in the shoulder. She takes meloxicam as needed, which is helpful. She states that in therapy they have her lifting about 3 lbs. She feels that she is making progress but it is slow. 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 Incisions are well healed. She has some diffuse soreness around the shoulder. She is able to actively elevate to approximately 130 , external rotation to 30, internal rotation to back pocket. She has good rotator cuff strength, although soreness with elevation. She is still experiencing stiffness and weakness of her shoulder. We will have her continue PT to work on range of motion and strengthening. We will keep her on the same work status. We will have her follow-up in 6 weeks after physical therapy for recheck. She is in agreement with plan. Not available 07/04/2024 13:33:12 08/14/2024 08/14/2024 33-year-old female presents for follow-up of her right shoulder status post arthroscopy, debridement, upper border of the subscap repair, and Regeneten repair of the supraspinatus, subacromial decompression, done on 01/03/2024. She reports she has been doing worse since her last appointment. She states for the last 2-3 weeks she is having severe pain starting at the shoulder and running down her upper arm. She has been working with physical therapy but states they have had to back off on exercise and she has not been making any progress due to the pain.They have tried tens units, scraping, and massage. She takes meloxicam as needed. The heaviest they have her lifting in therapy is about 3 lbs. Physical exam: Patient is tearful. States she is very stressed out about the lack of improvement and financial struggles. Incisions are well healed. She has soreness along the deltoid. She has good rotator cuff strength, soreness with elevation. She feels she is experiencing too much pain to continue therapy. Today we will try a cortisone injection. This will be both theraputic and diagnositic to determine if the pain is coming from the shoulder. She should continue with therapy. 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 We will keep her on the same work status, which is desk work only. We will have her follow-up in [address] Rdz. She is in agreement with this plan. Not available 08/15/2024 14:42:20 09/12/2024 09/12/2024 34-year-old female presents for follow-up of her right shoulder. She has a history of a shoulder scope and rotator cuff repair with Regeneten patch, biceps tendon tenodesis, upper border of the subscap repair, and subacromial decompression done on 01/03/2024. She reports persistent symptoms in her shoulder, localized to the mid humerus over the anterior lateral arm. She reports that it feels like this is associated with her deltoid. She previously had a cortisone injection of her shoulder which gave her a couple days of relief. She has been doing physical therapy which helps a little bit. She has also been using Voltaren. She currently rates her pain 6/10. Her pain is localized to the mid arm, distal to the shoulder joint and deltoid insertion. Is localized to over the biceps muscle and lateral arm. She has good shoulder and elbow range of motion. No sign of adhesive capsulitis or other stiffness with the shoulder. She fires her deltoids, has good rotator cuff resistance . She has some discomfort with Spurling's test, although does not recreate the exact symptoms she is describing. We discussed that the location of her current symptoms do not appear to be directly associated with the shoulder. The location she described as distal to the even the deltoid insertion. It is possible to have some referred pain from the shoulder. Given the location, we can try putting on a course of muscle relaxant to help with the biceps area pain. We will also send her for EMG including the cervical spine to see if there is some nerve component to this. We will also renew her physical therapy and hopefully she can continue get some improvement. We will see her back in 6 weeks after the course of treatment and to review the EMG. She is in agreement with the plan. [email or web address] Not available 09/13/2024 00:54:13 Plan of Treatment Reminders Order Date Submit Date Provider Last Modified By Organization Details Last Modified Time Details Appointments Any 5 2024 10:20A M Delio Rdz MD Not available Not available Not available Lab None recorded. Referral physical therapist referral - continuat ion of therapy for R shoulder 2024 025 [facility], [address] [facility] [place], [address], 09/13/2024 09:09:02 physical therapist referral - continue 2024 025 [facility] [place] [facility], [address] [facility] [place], [address], 08/14/2024 15:35:27 physical therapist referral - [facility], [address] [facility] [place], [address], 06/29/2024 11:05:28 Procedures nerve conductio n study/EMG , upper extremity (PROC) - R shoulder/ C-spine [address] (Cardiology & Emg), [address], [place], [address], 09/12/2024 12:27:32 injection /aspirati on joint/bur sa (PROC) 2024 025 [email or web address] In-Office Order, Internal Use Only DO Not Attach Compendium DO Not Attach Compendium, Do Not Delete/merge, [id number] 08/14/2024 11:11:57 Surgeries None recorded. Imaging None recorded. Medication Orders cyclobenz aprine 10 mg tablet 2024 025 [facility][id number], [address] [place], [place], [id number], 09/12/2024 12:27:32 bupivacai ne HCl 0.5 % (5 mg/mL) injection solution [address] [employer] [facility] #13610, [address] [place], [place], [id number], 08/14/2024 12:26:05 Kenalog 10 mg/mL suspensio n for injection 2024 025 [email or web address] Not available 09/13/2024 10:28:04 diclofena c sodium 75 mg tablet,de layed release 2024 025 [place] [address] [facility] [employer] [facility] #40006, [address], [place], [id number], 08/14/2024 12:26:05 Mobic 15 mg tablet 2023 024 [facility] #94437, [address] [place], [place], [id number], 05/09/2024 23:37:07 Patient TargetsNo targets recorded. Patient InstructionsNo instructions recorded. Reason for Referral Physical Therapist Referral for Partial thickness rotator cuff tear continue Referring Physician: Delio Rdz, Orthopedic Surgery, Encounter Date: 05/09/2024 Physical Therapist Referral for Partial thickness rotator cuff tear continue Referring Physician: Dalila Lewis, Orthopedic Surgery, Encounter Date: 08/14/2024 Physical Therapist Referral for Pain of right shoulder joint R shoulder continuation of therapy for R shoulder Referring Physician: Delio Rdz, Orthopedic Surgery, Encounter Date: 09/12/2024 Problems Name Problem SNOMED Code Status Onset Date Resolution Date Notes Provider Name and Address Organization Details Recorded Time Pain of right shoulder joint 8064150278460 [address], [employer] 3 10:52:10 Tendinitis of right rotator cuff 9073386267400 9104 Active 2022 Curry Krause MD [address], [place], [address], [employer] 3 16:42:00 Partial thickness rotator cuff tear 088872490 Active 2022 Delio Rdz MD [address], [address], [place], [address], [employer] 3 00:12:13 Partial thickness rotator cuff tear 390205080 Active 2022 [address], [employer] 3 11:41:37 Problem Notes None recorded. Procedures Surgical History Date Name Laterality Status Provider Name and Address Organization Details Recorded Time 08/14/19 25 Ortho - Cortisone Injection completed Dalila Lewis NP [address], [address], [place], [address], [employer] 08/14/2024 13:43:01 01/03/[address] [employer] 01/10/2024 16:36:[address] [employer] [facility] [employer] 11/16/2022 10:51:07 Imaging Results None recorded. Procedure Notes None recorded. Medical Equipment None Reported. Medications Name Sig Start Date Stop Date Status Note LastModified by Organization Details LastModified Time cyclobenzap rine 10 mg tablet Take 1 tablet 3 times a day by oral route as needed. 2024 active Not Available Not Available Not Avai lable azithromyci n 250 mg tablet 11/16 completed Not Available Not Available Not Available hydrocodone 5 mg-acetamin ophen 325 mg tablet TAKE 1 TABLET BY MOUTH EVERY 6 HOURS active Not Available Not Available No t Available meloxicam 15 mg tablet TAKE 1 TABLET BY MOUTH EVERY DAY active Not Available Not Available No t Available bupivacaine HCl 0.5 % (5 mg/mL) injection solution Take 15 mg by injection route. 2024 active Not Available Not Available Not Avai lable dextroamphe tamine-amph etamine 10 mg tablet 11/16 completed Not Available Not Available Not Available clobetasol 0.05 % topical cream 11/16 completed Not Available Not Available Not Available amoxicillin 875 mg tablet 11/16 completed Not Available Not Available Not Available Kenalog 10 mg/mL suspension for injection Take 20 mg by injection route. 2024 active [facility]: 0003- [phone]- 20 Not Available Not Available Not Available cephalexin 500 mg capsule 03/28 completed Not Available Not Available Not Available oseltamivir 75 mg capsule 11/16 completed Not Available Not Available Not Available diclofenac sodium 75 mg tablet,josie yed release TAKE 1 TABLET BY MOUTH TWICE DAILY active Not Available Not Available No t Available methylpredn isolone 4 mg tablets in a dose pack 11/16 completed Not Available Not Available Not Available albuterol sulfate HFA 90 mcg/actuati on aerosol inhaler 11/16 completed Not Available Not Available Not Available ondansetron 4 mg disintegrat ing tablet 11/16 completed Not Available Not Available Not Available cefdinir 300 mg capsule TAKE 1 CAPSULE BY MOUTH TWICE DAILY FOR 7 DAYS 05/08 completed Not Available Not Available Not Available sertraline 50 mg tablet 07/03 completed Not Available Not Available Not Available amoxicillin 875 mg-potassiu m clavulanate 125 mg tablet 11/16 completed Not Available Not Available Not Available bupropion HCl XL 300 mg 24 hr tablet, extended release 11/16 completed Not Available Not Available Not Available clobetasol 0.05 % shampoo 11/16 completed Not Available Not Available Not Available ropivacaine (PF) 5 mg/mL (0.5 %) injection solution in office 11/14 completed [facility] [phone] -[phone] Not Available Not Available Not Available Vitals Date Recorded Body height Body mass index (BMI) Body weight Provider Name and Address Organization Details Last Updated DateTime 03/28/2024 152.4 cm 26.4 kg/m2 48574.97 g Magalys ReavesLEONORA gonzalez [employer] 03/28/2024 15:37:47 Date Recorded Body height Body mass index (BMI) Body weight Pain severity - 0-10 verbal numeric rating [Score] - Reported Provider Name and Address Organization Details Last Updated DateTime 05/09/2024 152.4 cm 26.4 kg/m2 [address] [employer] [facility] [employer] 05/09/2024 11:27:43 Date Recorded Body height Provider Name an d Address Organization Details Last Updated DateTime 07/04/2024 152.4 cm [facility] [employer] [facility] [employer] 07/04/2024 10:25:09 Date Recorded Body height Body mass index (BMI) Body weight Provider Name and Address Organization Details Last Updated DateTime 08/14/2024 152.4 cm 26.4 kg/m2 37465.97 g Magalys Dorota, [employer] 08/14/2024 10:55:34 Date Recorded Body height Provider Name an d Address Organization Details Last Updated DateTime 09/12/2024 152.4 cm [facility] [employer] [facility] [employer] 09/12/2024 11:08:34 Social History Question Answer Notes LastModified by Organizat ion Details LastModified Time Tobacco Smoking Status Unknown If Ever Smoked [address] [facility] [employer] [facility] [employer] 11/16/2022 10:50:57 What Is Your Level Of Alcohol Consumption? None [email or web address] Information not available 11/16/2022 What Was The Date Of Your Most Recent Tobacco Screening? 01/17/2024 [email or web address] Information not available 01/17/2024 Sex: Unknown Functional Status None recorded. Mental Status None recorded. Family History Relationship Description Onset Age of this Age Resolved Age Notes LastModified by Organization Details LastModified Time Unspecified Relation Heart disease [email or web address] Not available 2023 10:50:55 Unspecified Relation Family history of stroke grandm other Not available 01/17/2024 10:51:16 Mother Hypertensive disorder [email or web address] Not available 2023 10:51:31 Paternal Grandfather Diabetes mellitus [email or web address] Not available 2023 10:51:43 Medical History Condition Response SKIN PROBLEMS Y ARTHRITIS Y Gynecological HistoryNo gynecological history recorded. Obstetrics History GPAL:G 0 P 0 0 0 0 Past Encounters Encounter ID Performer Location Encounter Start Date Encounter Closed Date Diagnosis/Indication Diagnosis SNOMED-CT Code Diagnosis ICD10 Code Diagnosis Note [id number] LIA Meyer [facility] [place] [address] [place] [address] 11/16/2022 10:39:17 11/16/2022 11:35:29 Pain of right shoulder joint 4519711583 7924962 M25.511 [id number] Curry Krause MD [facility] [place] [address] [place] [address] 12/01/2022 15:49:53 12/06/2022 14:37:50 Pain of right shoulder joint 0772016787 5863738 M25.511 Tendinitis of right rotator cuff 7816037046 8815344 M67.813 patient has had a little bit of therapy has not had a subacromia l impingemen t test we did an impingemen t test today with 8 cc xylocaine 2 cc Kenalog sterile technique standard protocol into the area of inflammati on of the subdeltoid bursa. We will also have the patient work with therapy doing some modalities for the inflammati on and then some eccentric strengthen ing of her rotator cuff. With the findings clinically and on MRI scan I would recommend conservati ve treatment as I do not see any significan t damage of the joint from the trauma do not see any evidence of any significan t AC joint separation as there was no inflammati on around the joint on the MRI no separation of the clavicle away from the acromion or any evidence of any ligament tearing at that area. We will see her back in 1 month for possible return to work and MMI. Question with her presentati on and her clinical evaluation if there is any possible conscious or subconscio us amplificat ion of symptomato logy that we often see in worker's compensati on setting [id number] LIA Meyer [facility] [place] [address] [place] [address] 01/04/2023 14:28:45 01/04/2023 15:19:35 Pain of right shoulder joint 3231666288 2266403 M25.511 [id number] Delio Rdz MD [facility] [place] [address] [place] [address] 02/02/2023 11:27:21 02/02/2023 12:47:12 Pain of right shoulder joint 0010973210 2043310 M25.271 [id number] Delio Rdz MD [facility] [place] [address] [place] [address] 03/30/2023 11:48:31 03/30/2023 12:05:04 Pain of right shoulder joint 1364301612 8381777 M25.511 Tendinitis of right rotator cuff 9220823577 2968652 M67.813 Partial th ickness rotator cuff tear 173195210 M75.317 [id number] Delio Rdz MD [facility] [place] [address] [place] [address] 06/22/2023 11:39:10 06/22/2023 12:24:46 Pain of right shoulder joint 5421649441 7940892 M25.511 Tendinitis of right rotator cuff 0750596727 9240239 M67.813 Partial th ickness rotator cuff tear 537624662 M75.867 [id number] Delio Rdz MD [facility] [place] [address] [place] [address] 11/16/2023 15:18:30 11/16/2023 16:18:41 Pain of right shoulder joint 5425701078 0922796 M25.636 [id number] Delio Rdz MD [facility] [place] [address] [place] [address] 12/21/2023 15:01:22 12/21/2023 15:31:33 Pain of right shoulder joint 7652234127 8506482 M25.023 [id number] Delio Rdz MD [facility] [place] [address] [place] [address] 01/17/2024 10:32:58 01/17/2024 11:20:20 Pain of right shoulder joint 6324986084 7479461 M25.131 [id number] Delio Rdz MD [facility] [place] [address] [place] [address] 02/15/2024 14:12:11 02/15/2024 14:36:53 Tendinitis of right rotator cuff 5684604058 1308673 M67.813 Pain of ri ght shoulder joint 4147640083 7794039 M25.316 [id number] Dalila Lewis NP [facility] [place] [address] [place] [address] 03/28/2024 15:32:17 03/28/2024 16:03:51 Pain of right shoulder joint 7126932025 5054957 M25.511 Tendinitis of right rotator cuff 8779682724 6935041 M67.813 Partial th ickness rotator cuff tear 537300379 M75.323 [id number] Delio Rdz MD [facility] [place] [address] [place] [address] 05/09/2024 11:23:24 05/09/2024 12:06:45 Pain of right shoulder joint 0393052359 6913080 M25.511 Tendinitis of right rotator cuff 1731805546 2783545 M67.813 Partial th ickness rotator cuff tear 443084257 M75.506 [id number] Dalila Lewis, SLICK [facility] [place] [address] [place], [place] [address] 07/04/2024 10:21:49 07/04/2024 10:53:03 Pain of right shoulder joint 8552534823 5248833 M25.511 Tendinitis of right rotator cuff 9525787704 8475852 M67.813 Partial th ickness rotator cuff tear 560399581 M75.911 [id number] Dalila Lewis NP [facility] [place] [address] [place], [place] [address] 08/14/2024 10:51:04 08/14/2024 11:15:23 Pain of right shoulder joint 5976323766 6027116 M25.511 Tendinitis of right rotator cuff 1972744942 5708873 M67.813 Partial th ickness rotator cuff tear 209414143 M75.343 [id number] Delio Rdz MD [facility] [place] [address] [place], [place] [address] 09/12/2024 11:04:26 09/12/2024 11:49:13 Pain of right shoulder joint 8865229016 7889607 M25.511 Tendinitis of right rotator cuff 2409337774 2551684 M67.813 Partial th ickness rotator cuff tear 778279812 M75.101 Health Concerns Section Related Observation LastModified by Organization Detai ls LastModified Time None Recorded Concern Status LastModified by Organization Details LastModified Time None Recorded Advance Directives Directive None Recorded Payers Encounter Date Sequence Insurance Name Policy Number Policy Dockery Covered Member ID Dockery Member ID Guarantor Name 03/28/2024 1 [employer] (POS) [id number] Margarita L Cassulo [id number] Margarita Cassulo 05/09/2024 1 [employer] (POS) [id number] Margarita L Cassulo [id number] Margarita Cassulo 07/04/2024 1 [employer] (POS) [id number] Margarita L Cassulo [id number] Margarita Cassulo 08/14/2024 1 [employer] (POS) [id number] Margarita L Cassulo [id number] Margarita Cassulo 09/12/2024 1 [employer] (POS) [id number] Margarita Guevara [id number] Margarita Guevara OBGyn Episode No OBEpisode recorded.
--- OUTSIDE RECORDS SUMMARY | 2024-10-16 08:49 | XMS_ITS | Clinical Summary ---
Author Organization [facility] at the [facility] Address [address] [place] [address] Care Team Providers Care Insurance Sales Executive Name Role Phone Delio Rdz MD Unavailable [phone] Tara Aaron NP Primary Care Provider Mumtaz Bruce NP Unavailable [phone] Allergies Active Allergy Reactions Criticality Noted Date [...] -patient reports she has not seen a tab cutter in quite awhile, but would be interested [...] case. Getting set up with neurologist in [place], [place] - pending appointment. Patient remains off [...] 05/09/2024 Assessment & Plan (09/23/2022 4:22 PM ULTRASOUND TECHNOL): Stable, no changes. Continue current regimen with sertraline Encounters Date Type Department Care Team Description 10/15/2024 8:30 AM CDT Therapy [facility] [address] [place] [address] Ping Godoy, PT Right shoulder pain, unspecified chronicity (Primary Dx); Tear of right rotator cuff, unspecified tear extent, unspecified whether traumatic; Other specified disorders of tendon, right shoulder 10/15/2024 Plan of Care Documentation [facility] [address] [place] [address] 10/10/2024 11:00 AM CDT Therapy [facility] [address] [place] [phone] Ping Godoy, PT Right shoulder pain, unspecified chronicity (Primary Dx); Tear of right rotator cuff, unspecified tear extent, unspecified whether traumatic; Other specified disorders of tendon, right shoulder 10/01/2024 10:30 AM CDT Therapy [facility] [address] [place] [address] Ping Godoy, PT Right shoulder pain, unspecified chronicity (Primary Dx); Tear of right rotator cuff, unspecified tear extent, unspecified whether traumatic; Other specified disorders of tendon, right shoulder 09/24/2024 10:15 AM CDT Therapy [facility] [address] [place] [address] Ping Godoy, PT Right shoulder pain, unspecified chronicity (Primary Dx); Tear of right rotator cuff, unspecified tear extent, unspecified whether traumatic; Other specified disorders of tendon, right shoulder 09/20/2024 9:30 AM ULTRASOUND TECHNOL Therapy [facility] [address] [place] [address] Ping Godoy, PT Right shoulder pain, unspecified chronicity (Primary Dx); Tear of right rotator cuff, unspecified tear extent, unspecified whether traumatic; Other specified disorders of tendon, right shoulder 09/18/2024 10:30 AM ULTRASOUND TECHNOL Therapy [facility] [address] [place] [address] Ping Godoy, PT Right shoulder pain, unspecified chronicity (Primary Dx); Tear of right rotator cuff, unspecified tear extent, unspecified whether traumatic; Other specified disorders of tendon, right shoulder 09/13/2024 11:15 AM ULTRASOUND TECHNOL Therapy [facility] [address] [place] [address] Ping Godoy, PT Right shoulder pain, unspecified chronicity (Primary Dx) 09/11/2024 10:30 AM ULTRASOUND TECHNOL Therapy [facility] [address] [place] [address] Ping Godoy, PT Tear of right rotator cuff, unspecified tear extent, unspecified whether traumatic (Primary Dx); Other specified disorders of tendon, right shoulder 09/07/2024 8:00 AM ULTRASOUND TECHNOL Therapy [facility] [address] [place] [address] Ping Godoy, PT Tear of right rotator cuff, unspecified tear extent, unspecified whether traumatic (Primary Dx); Other specified disorders of tendon, right shoulder 08/31/2024 7:45 AM ULTRASOUND TECHNOL Therapy [facility] [address] [place] [address] Ping Godoy, PT Tear of right rotator cuff, unspecified tear extent, unspecified whether traumatic (Primary Dx) 08/17/2024 9:30 AM ULTRASOUND TECHNOL Therapy [facility] [address] [place] [address] Archana Hammonds, PT Other specified disorders of tendon, right shoulder (Primary Dx) 08/13/2024 1:45 PM ULTRASOUND TECHNOL Therapy [facility] [address] [place] [address] 24[address] Angelica Bush, ANDROID ARCHITECT Other specified disorders of tendon, right shoulder (Primary Dx) 08/08/2024 10:15 AM ULTRASOUND TECHNOL Therapy [facility] [address] [place] [address] Ping Godoy, PT Other specified disorders of tendon, right shoulder (Primary Dx) 08/06/2024 11:30 AM ULTRASOUND TECHNOL Therapy [facility] [address] [place] [address] Ping Godoy, PT Other specified disorders of tendon, right shoulder (Primary Dx) 07/30/2024 10:15 AM ULTRASOUND TECHNOL Therapy [facility] [address] [place] [address] Ping Godoy, PT Other specified disorders of tendon, right shoulder (Primary Dx) 07/26/2024 1:00 PM ULTRASOUND TECHNOL Therapy [facility] [address] [place] [address] Ping Godoy, PT Other specified disorders of tendon, right shoulder (Primary Dx) from Last 3 Months Immunizations Immunization Administration Dates Next Due DTP 02/24/1993,1992,1992 HiB 02/24/1993,1992,1992 Influenza, Unspecified 05/09/2024(Deferr ed: Patient Refused),04/17/2023(Deferred: Patient Refused),04/17/2022(Deferred: Patient Refused),04/17/2022(Deferred: Patient Refused),04/17/2021(Deferred: Patient Refused),04/17/2020(Deferred: Patient Refused),04/17/2019(Deferred: Patient Refused),04/17/2019(Deferred: Patient Refused) OPV 1992,1992 Surgical History Surgery Date Site/Laterality Comments TONSILLECTOMY ROTATOR CUFF REPAIR 12/17/2023 - 01/15/2024 Medical History Medical History Date Comments Closed fracture of left distal fibula 11/22/2018 Psoriasis Anxiety Depression Autoimmune disease Post concussion syndrome 11/20/2020 ADHD (attention deficit hyperactivity disorder) PTSD (post-traumatic stress disorder) Autism POTS (postural orthostatic tachycardia syndrome) Psoriatic arthritis (HCC) Moderate mixed bipolar I disorder (HCC) 11/03/19 11 Family History Medical History Relation Name Comments Mental illness Brother 1 ADHD Mental illness Brother 2 ADHD Mental illness Father possibly auti sm Early Maternal Grandfather unsure Heart disease Maternal Grandmother juancho alvarado Autoimmune disease Mother RA, small fiber neurthopathy Heart disease Paternal Grandfather benny perea No Known Problems Paternal Grandmother Relation Name Status Comments Brother 1 Alive Brother 2 Alive Father Alive Maternal Grandfather Maternal Grandmother juancho alvarado Alive Mother Alive Paternal Grandfather benny perea Paternal Grandmother Alive Social History Tobacco Use Types Packs/Day Years [...] on file Legal Sex Female 11:56 PM ULTRASOUND TECHNOL Gender Identity Not on file Sexual Orientation Lesbian 07/27/2020 11 :23 AM ULTRASOUND TECHNOL Obstetrics History Last Filed Vital Signs Vital Sign Reading [...] 05/09/2024 2:06 PM CDT Plan of Treatment Health Maintenance Due Date Last Done Comments Cervical Cancer Screening 1992 Hepatitis C Screening 1992 DTaP/Tdap/Td Vaccine (4 - Tdap) 2003 02/24/1993, 1992, 1992 Varicella Vaccines (1 of 2 - 13+ 2-dose series) 2005 Hepatitis B Screening 2010 Influenza Vaccine (Season Ended) 2025 Depression Screening 05/09/2025 05/09/2024, 04/10/2024, 11/10/2022, Additional history exists Regular Well Visit/Exam 18-64 05/09/2025 05/09/2024, 05/09/2024 HPV Vaccines Aged Out No longer eligi ble based on patient's age to complete this topic Pneumococcal vaccine <65 Aged Out No longer eligible based on patient's age to complete this topic Insurance [facility]IC[facility] QUIRO[facility] Care Teams Insurance Sales Executive Relationship Specialty Start Date End Date Tara Aaron NP [address] [address] PCP - General Family Medicine 05/09/24 Delio Rdz MD [address] [place] [address] Orthopedic Surgery 04/10/24 Mumtaz Bruce NP [address] [place] [address] [place] [address] Nurse Practitioner Internal Medicine 05/09/24
--- NOTE | 2024-10-16 11:30 | NEURO_ITS ---
Impression: # Complains of right upper extremity discomfort. ? # Normal Nerve Conduction Study. ? # Normal needle/EMG exam, proximally and distally. ? # No evidence of Carpal Tunnel Syndrome, ulnar neuropathy or higher involvement. ? # Clinical correlation recommended. Nerve Conduction Studies Anti Sensory Summary Table ?Stim Site NR Peak (ms) P-T Amp (?V) Site1 Site2 Delta-P (ms) Dist (cm) Oc (m/s) Right Median Anti Sensory (2-3nd Digit) Wrist ? 2.4 87.2 Wrist 2-3nd Digit 2.4 14.0 58 Wrist ? 2.4 83.1 Wrist 2-3nd Digit 2.4 14.0 58 Right Radial Anti Sensory (Base 1st Digit) Wrist ? 2.5 58.5 Wrist Base 1st Digit 2.5 0.0 Right Ulnar Anti Sensory (5th Digit) Wrist ? 2.0 86.9 Wrist 5th Digit 2.0 14.0 70 Motor Summary Table ?Stim Site NR Onset (ms) O-P Amp (mV) Site1 Site2 Delta-0 (ms) Dist (cm) Oc (m/s) Right Median Motor (Abd Poll Brev) Wrist ? 2.7 2.3 Elbow Wrist 4.3 25.0 58 Elbow ? 7.0 1.8 Right Ulnar Motor (Abd Dig Minimi) Wrist ? 2.0 8.0 A Elbow Wrist 4.4 26.0 59 A Elbow ? 6.4 7.5 B Elbow Wrist 3.1 19.0 61 B Elbow ? 5.1 3.2 F Wave Studies ?NR F-Lat (ms) L-R F-Lat (ms) Right Median (Mrkrs) (Abd Poll Brev) ? 24.30 Right Ulnar (Mrkrs) (Abd Dig Min) ? 23.67 EMG ?Side Muscle Nerve Root Ins Act Fibs Amp Dur Recrt Comment Right 1stDorInt Ulnar C8-T1 Nml Nml Nml Nml Nml Right Ext Indicis Radial (Post Int) C7-8 Nml Nml Nml Nml Nml Right Ext Digitorum Radial (Post Int) C7-8 Nml Nml Nml Nml Nml Right BrachioRad Radial C5-6 Nml Nml Nml Nml Nml Right PronatorTeres Median C6-7 Nml Nml Nml Nml Nml Right Abd Poll Brev Median C8-T1 Nml Nml Nml Nml Nml Right ABD Dig Min Ulnar C8-T1 Nml Nml Nml Nml Nml Right FlexPolLong Median (Ant Int) C7-8 Nml Nml Nml Nml Nml Right Abd Poll Long Radial (Post Int) C7-8 Nml Nml Nml Nml Nml Right Biceps Musculocut C5-6 Nml Nml Nml Nml Nml Right Triceps Radial C6-7-8 Nml Nml Nml Nml Nml Right Deltoid Axillary C5-6 Nml Nml Nml Nml Nml MTDD
== END 2024-10-16 08:36 | disposition home or self-care (01) ==
LOC: ANHNEURO 08:37
PROVIDERS: Visit Provider Orthopaedic Surgery
DX: M25.511 Pain in right shoulder (principal)
CPT/HCPCS: 95886; 95909

== ENCOUNTER 2025-06-07 09:48 | Emergency (ER) | payer OTHER, SELFPAY ==
--- OUTSIDE RECORDS SUMMARY | 2025-06-07 09:51 | XMS_ITS | Encounter Summary ---
Author Organization [facility] Address [address] [place] [address] Care Team Providers Care Kick Plate Installer Name Role Phone Kat Morrell MD Primary Care Provider [phone] Alicia Flowers Primary Care Provider + Rosalia Ridley DO Primary Care Provider [phone] Delio Rdz MD Unavailable [phone] No, Physician Primary Care Provider [phone] Tara Aaron NP Primary Care Provider Mumtaz Bruce NP Unavailable [phone] Encounter Details Date Type Department Care Team (Late st Contact Info) Description 02/15/2020 E-Visit [facility]/ Physicians [address] [place] [address] Mya Tyler, MECHANICAL METER TESTER [address] [facility] [address] [id number] RE: E-Visit Submission: Cough Social History Tobacco [...] on file Legal Sex Female 11:56 PM BATTERY ASSEMBLER PLASTIC Gender Identity Not on file Sexual Orientation Lesbian 07/27/2020 11 :23 AM BATTERY ASSEMBLER PLASTIC documented as of this encounter Plan of Treatment Not on file documented as of this encounter Visit Diagnoses Diagnosis Cough documented in this encounter Additional Health Concerns Infection Onset Date Last Indicated Resolved Time COVID: Suspected 10/02/2020 10/02/2020 10/16/2020 3:07 AM CDT COVID: Suspected 06/07/2021 06/07/2021 06/07/2021 11:33 AM BATTERY ASSEMBLER PLASTIC COVID: Suspected 12/25/2021 12/25/2021 12/25/2021 10:59 AM CDT COVID19 12/25/2021 12/25/2021 01/04/2022 3:05 AM CDT COVID: Recovered Comment:Added based on recent COVID infection. 01/04/2022 01/05/2022 05/04/2022 3:05 AM C DT COVID: Suspected 04/29/2022 04/29/2022 04/29/2022 10:37 AM CDT Influenza, adult 04/29/2022 04/29/2022 05/06/2022 3:05 AM CDT COVID: Suspected 06/14/2022 06/14/2022 06/14/2022 11:33 AM BATTERY ASSEMBLER PLASTIC COVID: Suspected 06/14/2022 06/14/2022 06/14/2022 4:10 PM BATTERY ASSEMBLER PLASTIC COVID: Suspected 07/06/2022 07/06/2022 07/06/2022 10:49 AM BATTERY ASSEMBLER PLASTIC COVID: Suspected 10/07/2022 10/07/2022 10/07/2022 10:29 AM CDT COVID: Suspected 01/31/2023 01/31/2023 01/31/2023 3:41 PM CDT COVID: Suspected 03/09/2023 03/09/2023 03/09/2023 9:55 AM CDT Influenza, adult 03/09/2023 03/09/2023 03/16/2023 3:05 AM CDT COVID: Suspected 04/18/2023 04/18/2023 04/18/2023 12:44 PM CDT COVID: Suspected 07/08/2023 07/08/2023 07/08/2023 1:02 PM BATTERY ASSEMBLER PLASTIC COVID: Suspected 07/08/2023 07/08/2023 07/08/2023 6:01 PM BATTERY ASSEMBLER PLASTIC documented as of this encounter Care Teams Kick Plate Installer Relationship Specialty Start Date End Date Kat Morrell MD PCP - General Family Medicine 11/08/18 05/19/20 Alicia Flowers PA PCP - General Family Medicine 05/20/20 04/09/24 Rosalia Ridley DO [address] [facility] [address] [address] [place] [address] PCP - General Family Medicine 04/10/24 04/25/24 No, Physician PCP - General 05/04/24 05/08/24 Tara Aaron NP [address] [facility] [address] [address] [place] [address] PCP - General Family Medicine 05/09/24 Delio Rdz MD [address] [place] [address] Orthopedic Surgery 04/10/24 Mumtaz Bruce, SLICK [address] [facility] [address] [facility] [address] [place] [address] Nurse Practitioner Internal Medicine 05/09/24 documented as of this encounter
--- OUTSIDE RECORDS SUMMARY | 2025-06-07 09:51 | XMS_ITS | Patient Health Record ---
Author Organization [facility] Address [address] [facility] [address] [place], [place] [address] Care Team Providers Care Vessel Scrapper Name Role Phone Yusra Azul Unavailable [phone] REASON FOR REFERRAL No Information MEDICATIONS Medication [...] Bipolar 1 disorder, depressed (F31.9) Active confirmed 01523162 Problem Sleeping difficulties (G47.9) Active confirmed 369730496 Problem Polyarthralgia (M25.50) Active confirmed 21344935 Problem Low back pain at multiple sites (M54.5) Active confirmed 751794155 PLAN OF TREATMENT Pending Test Test Name [...] Date [employer] CHOICE POS II [address] [place] [address] [id number] Margarita Guevara Self - patient is the insured 9 MEDICAL (GENERAL) HISTORY Surgical History Surgery Date(Month/Year) tonsillectomy 2203
--- OUTSIDE RECORDS SUMMARY | 2025-06-07 09:51 | XMS_ITS | Clinical Summary ---
Author Organization [facility] Address [address] [place] [address] Care Team Providers Care Accounts Receivable Executive Name Role Phone Delio Rdz MD Unavailable [phone] Tara Aaron NP Primary Care Provider Mumtaz Bruce NP Unavailable [phone] Allergies Active Allergy Reactions Criticality Noted Date Comments Haloperidol Swelling Medium 05/22/2020 Paliperidone Other (See comments) High 10/27/2010 galactorrhea Medications meloxicam (MOBIC) 15 mg tabletIndication s:Right shoulder pain, unspecified chronicity Take 1 tablet (15 mg total) by mouth daily 90 tablet 1 5 Active cetirizine (ZyrTEC) 10 mg tabletIndication s:Non-seasonal allergic rhinitis due to other allergic trigger Take 1 tablet (10 mg total) by mouth daily as needed for allergies 90 tablet 1 5 03/19/20 26 Active Active Problems Problem Noted Date Diagnosed [...] with body mass in dex (BMI) of 26 to 26.9 in adult 05/09/2024 Assessment & Plan (03/19/2025 4:53 PM CDT): Wt Readings from Last 3 Encounters: 03/19/25 60.9 kg (134 lb 4.8 oz) 05/09/24 63.1 kg (139 lb 1.6 oz) 04/10/24 63.3 kg (139 lb 9.6 oz) Body mass index is 26.23 kg/m . -Stable, at goal of <30 bmi -Discussed recommendations for exercise at least 30 minutes moderate to vigorous exercise as tolerated most days of the week. (minimum 150 minutes weekly) -Discussed importance of well-balanced diet Assessment & Plan (05/09/2024 4:32 PM CDT): [...] -patient reports she has not seen a program management professional in quite awhile, but would be interested [...] due to allergen 04/10/2024 Assessment & Plan (03/19/2025 4:53 PM CDT): -chronic, suboptimally controlled -currently uses Zyrtec 10 mg daily as needed -reports worsening of allergies during environmental and weather changes -Patient endorses experiencing acute sinus pressure/pain, fatigue/malaise, congestion, headache, ear fullness -Z-Francisco Javier prescribed -continue current treatment plan Orders: cetirizine (ZyrTEC) 10 mg tablet; Take 1 tablet (10 mg total) by mouth daily as needed for allergies azithromycin (ZITHROMAX) 250 mg tablet; Take 2 tabs (500 mg) by mouth today, than 1 tab (250 mg) daily for 4 days. Assessment & Plan (04/10/2024 3:04 PM CDT): Encouraged patient to treat her allergy flare as this can also contribute to fatigue. Patient will restart Zyrtec. Postural dizziness with near syncope 05/30/2023 Right shoulder pain 11/16/2022 Assessment & Plan (03/19/2025 4:53 PM CDT): -Chronic, suboptimally controlled -Patient endorses longstanding history of chronic right shoulder pain after sustaining work injury a couple of years ago -OTC medication provides minimal relief -Patient endorses significant difficulties with ongoing decreased range of motion -New referral placed to physical therapy -Meloxicam 15 mg daily as needed refilled -Continue current treatment plan Orders: meloxicam (MOBIC) 15 mg tablet; Take 1 tablet (15 mg total) by mouth daily Borderline personality disorder 08/24/2022 MAL (generalized anxiety [...] Tendinitis of right rotator cuff 12/01/2022 05/09/2024 AC separation, right, subsequent encounter 02/08/2022 05/09/2024 Assessment & Plan (11/10/2022 4:43 PM CDT): Pain and ROM improved overall Seeing specialist 11/16/22 Sprain of elbow, right 02/08/202205/09 Tendinitis of thumb 02/08/2022 05/09/20 24 Concussion with no loss of consciousness 02/12/2021 05/09/2024 Post concussion syndrome 11/20/2020 Assessment & Plan (01/26/2021 5:01 PM CDT): We have had a difficult time finding a neurologist that will take patient's WC case. Getting set up with neurologist in [place], [place] - pending appointment. Patient remains off [...] 05/09/2024 Assessment & Plan (09/23/2022 4:22 PM FILE DRAWER FINISHER): Stable, no changes. Continue current regimen with sertraline Encounters Date Type Department Care Team Description 05/23/2025 7:45 AM FILE DRAWER FINISHER Therapy [facility] [address] [place] [phone] Ping Godoy, PT Chronic right shoulder pain (Primary Dx) 05/21/2025 7:45 AM FILE DRAWER FINISHER Therapy [facility] [address] [place] [address] Ping Godoy, PT Chronic right shoulder pain (Primary Dx) 05/14/2025 8:45 AM CDT Therapy [facility] [address] [place] [address] Ping Godoy, PT Chronic right shoulder pain (Primary Dx) 05/14/2025 Orders Only [facility] Primary Care at [address] [address] Tara Aaron, CIRCUS TRAIN SUPERVISOR Chronic right shoulder pain (Primary Dx) 05/07/2025 9:15 AM CDT Therapy [facility] [address] [place] [address] Ping Godoy, PT Chronic right shoulder pain (Primary Dx) 04/19/2025 9:30 AM CDT Therapy [facility] [address] [place] [address] Ping Godoy, PT Chronic right shoulder pain (Primary Dx) 04/18/2025 Orders Only [facility] Primary Care at [address] [phone] Tara Aaron, CIRCUS TRAIN SUPERVISOR Chronic right shoulder pain (Primary Dx) 04/17/2025 9:15 AM CDT Therapy [facility] [address] [place] [address] Ping Godoy, PT Chronic right shoulder pain (Primary Dx) 04/17/2025 Plan of Care Documentation [facility] [address] [place] [address] 03/26/2025 Telephone [facility] Primary Care at [address] [address] Tara Aaron, CIRCUS TRAIN SUPERVISOR 03/19/2025 3:30 PM CDT Office Visit [facility] Primary Care at [address] [phone] Tara Aaron, CIRCUS TRAIN SUPERVISOR Right shoulder pain, unspecified chronicity (Primary Dx); Non-seasonal allergic rhinitis due to other allergic trigger; Overweight with body mass index (BMI) of 26 to 26.9 in adult 03/19/2025 Orders Only [facility] Primary Care at [address] [place] [address] Tara Aaron NP Chronic right shoulder pain (Primary Dx) from Last 3 Months Immunizations [...] Never Smokeless Tobacco: Never Tobacco Cessation:Counseling Given: Yes Alcohol Use Standard Drinks/Week Comments Not Currently [...] more points, staff should administer the PHQ-9) 1 03/19/2025 Personal Safety Answer Date Recorded Have you ever been in or are you currently in a harmful physical or emotional relationship or is someone making you feel afraid or unsafe? Denies 06/19/2023 Comments No Sex and Gender Information Value Date Recorded Sex Assigned at Not on file Legal Sex Female 11:56 PM FILE DRAWER FINISHER Gender Identity Not on file Sexual Orientation Lesbian 07/27/2020 11 :23 AM FILE DRAWER FINISHER Last Filed Vital Signs Vital Sign Reading Time Taken Comments Blood Pressure 110/78 03/19/2025 3:28 PM CDT Pulse 83 03/19/2025 3:28 PM CDT Temperature 36.5 C (97.7 F) 04/10/2024 9:07 AM CDT Respiratory Rate 16 03/19/2025 3:28 PM CDT Oxygen Saturation 99% 03/19/2025 3:28 PM CDT Inhaled Oxygen Concentration - - Weight 60.9 kg (134 lb 4.8 oz) 03/19/2025 3:28 P M CDT Height 152.4 cm (5') 03/19/2025 3:28 PM CDT Body Mass Index 26.23 03/19/2025 3:28 PM CDT Plan of Treatment Health Maintenance Due Date Last Done Comments Cervical Cancer Screening 1992 Hepatitis C Screening 1992 DTaP/Tdap/Td Vaccine (4 - Tdap) 2003 02/24/1993, 1992, 1992 Hepatitis B Screening 2010 HPV Vaccines (1 - 3-dose SCDM series) 2019 Influenza Vaccine (#1) 2025 Regular Well Visit/Exam 18-64 05/09/2025 05/09/2024, 05/09/2024 Depression Screening 03/19/2026 03/19/2025, 05/09/2024, 04/10/2024, Additional history exists Pneumococcal vaccine <65 Aged Out No longer eligible based on patient's age to complete this topic Varicella Vaccines Discontinued Insurance [facility] QUIRO[facility] Care Teams Accounts Receivable Executive Relationship Specialty Start Date End Date Tara Aaron NP [address] [place] [address] [address] [place] [address] PCP - General Family Medicine 05/09/24 Delio Rzd MD [address] [place] [address] Orthopedic Surgery 04/10/24 Mumtaz Bruce NP [address] [place] [address] [address] [place] [address] Nurse Practitioner Internal Medicine 05/09/24
--- OUTSIDE RECORDS SUMMARY | 2025-06-07 09:51 | XMS_ITS | Clinical Summary ---
Author Organization [facility] Address [address] [place] [address] Care Team Providers Care Music Worker Name Role Phone Unavailable Primary Care Provider Unavailabl e Source Comments [facility],non-owned Affiliates and Associated Physician Practices is amultiple site organization consisting of ambulatory clinics and hospital sitesin [place], [place], [place] and [place]. This disclosure is being madepursuant to the Care Everywhere program and may not contain all information available regarding this patient. Last updated 18.[facility] Social History Tobacco Use Types Packs/Day Years Used Date Smoking Tobacco: Never Assessed PHQ-2 Answer Date Recorded PHQ2 TOTAL SCORE 6 06/18/2021 Comments Unknown Sex and Gender Information Value Date Recorded Sex Assigned at Not on file Legal Sex Female 1:56 PM IMPLANT COORDINATOR Gender Identity Not on file Sexual Orientation Not on file Plan of Treatment Health Maintenance Due Date Last Done Comments HIV SCREENING 2007 HEPATITIS C SCREENING 08/08/2010 DTAP/TDAP/TD VACCINES (1 - Tdap) 2011 HEPATITIS B VACCINE (1 of 3 - 19+ 3-dose series) 2011 PAP SMEAR 2013 HPV VACCINE (1 - 3-dose SCDM series) 2019 Cervical Cancer Screening 2022 PAP with HPV 2022 DEPRESSION SCREENING 07/18/2024 COVID-19 VACCINE ( - 2024-2 6 season) 2025 INFLUENZA VACCINE (#1) 2025 ZOSTER VACCINE (1 of 2) 2042 HIB [...] patient's age to complete this topic Insurance T
[2025-06-07 09:54] VITALS: BP 113/71; PULSE 81; RESP 16; TEMP 36.7; O2SAT 99
--- NOTE | 2025-06-07 10:22 | ED_ITS ---
HPI - URI/Sore Throat General Chief Complaint: Upper Respiratory Infection Stated Complaint: chest heavy/hard to breathe Time Seen by Provider: 06/07/25 10:22 Source: patient and RN notes reviewed Mode of arrival: ambulatory Limitations: no limitations History of Present Illness HPI Narrative: 34-year-old female presents concern for cough. She reports it is mild runny nose, stuffy nose sore throat. She has not taken any medications [id number]. She has history of POTS. She is concerned for COVID patient MD elicited complaint: cough Related Data Home Medications ?Medication ?Instructions ?Recorded ?Confirmed ?Last Taken ?Type meloxicam 15 mg tablet mg 06/07/25 Unknown History Allergies Allergy/AdvReac Type Severity Reaction Status Date / Time No Known Allergies Allergy Verified 06/07/25 09:50 Review of Systems Review of Systems: CONSTITUTIONAL: Denies malaise, chills, sweats, or fever. EYES: Denies visual changes, redness, or discharge. ENT: Reports rhinorrhea, congestion, sand sore throat. CARDIOVASCULAR: Denies chest pain, palpitations, or edema. RESPIRATORY: Reports cough. Denies dyspnea. GASTROINTESTINAL: Denies abdominal pain, nausea, vomiting, diarrhea SKIN: Denies rash or itching. MUSCULOSKELETAL: Denies myalgia. NEUROLOGIC: Denies headache. All systems reviewed & are unremarkable except as noted in HPI and below PMFSH Past Medical History Medical History No pertinent past medical history Surgical History Surgical History No pertinent past surgical history Family History Family History Mother Family history non-contributory Social History Social History Substance use: current Substance use type: marijuana Living arrangements: alone Gender identity (if verbalized by the patient): Female Spiritual care concerns: No Comments At time of signature, agree with nursing past medical, surgical, social and family history. There is no relevant family history pertinent to the presenting complaint Exam Narrative: GENERAL: Well-appearing, well-nourished, and in no acute distress. HEAD: Normocephalic EYES: PERRLA, conjunctivae clear ENT: Nares clear. Mucous membranes moist. TM pearly alicea with dull light reflex bilaterally; no tragal tenderness. Oropharynx not erythematous without lesions. Tonsils not enlarged and without exudate, no drooling, no hoarseness, no trismus, uvula midline. NECK: Supple. No lymphadenopathy CHEST: Clear to auscultation, breath sounds equal. No wheezing, rhonchi, rales, or stridor. No respiratory distress, speaks in full sentences. HEART: Regular rate and rhythm. No murmur heard. SKIN: Warm, dry, no rash. NEURO: Alert and oriented x3. PSYCH: Normal mood and affect Course Course Emergency Course: Patient is aware of diagnosis, understands and agrees to treatment plan. Anticipatory guidance given. Patient agrees to follow-up as directed and is aware of reasons to seek care at the emergency department. Portions of this record may have been created with voice recognition software Level of Care: Express Care Visit Vital Signs Vital signs: Vital Signs Temperature 98.1 F 06/07/25 09:54 Pulse Rate 81 06/07/25 09:54 Respiratory Rate 16 06/07/25 09:54 Blood Pressure 113/71 06/07/25 09:54 Pulse Oximetry 99 06/07/25 09:54 Oxygen Delivery Room Air 06/07/25 09:54 Temperature 98.1 F 06/07/25 09:54 Pulse Rate 81 06/07/25 09:54 Respiratory Rate 16 06/07/25 09:54 Blood Pressure 113/71 06/07/25 09:54 Pulse Oximetry 99 06/07/25 09:54 Oxygen Delivery Room Air 06/07/25 09:54 Reviewed. MDM - URI/Sore Throat MDM Narrative Medical decision making narrative: Differential diagnosis considered: Simpson virus, strep pharyngitis, allergic rhinitis, upper respiratory tract infection, sinusitis, rhinosinusitis, nasopharyngitis. viral pharyngitis, otitis media, otitis externa, pneumonia, bronchitis, viral cough syndrome, viral syndrome, and influenza. Exam findings show no acute concerns or changes; patient is non-toxic appearing and is in no distress. Patient is appropriate for outpatient treatment and follow-up. Lab Data Attestation: I reviewed the patient's lab results. Critical Care Time Critical Care Time Critical Care Time: No Discharge Plan Discharge Clinical Impression: Upper respiratory infection Patient Disposition: Home Condition: Stable Instructions: Upper Respiratory Infection (ED) Additional Instructions: Viral illness may last between 7-21 days; antibiotics do not cure viral illness and are NOT recommended at this time. Recommend antihistamine such as Benadryl at night time and Zyrtec or Betzy during the day Cough syrup may cause drowsiness; avoid driving or take it at night time. Also, recommend symptomatic treatment includes: rest, fluids, and increase humidity of the air at home. Recommend Acetaminophen as directed on the bottle to reduce fever, pain, headache. Avoid smoking/second-hand smoke. Please schedule a follow-up visit with your personal physician for further evaluation and treatment within 3-5days. Including recheck and discussion of your blood pressure. If your symptoms persist, change or worsen significantly before you can contact your personal physician then please, without delay, go to the emergency department for further evaluation. Patient Language: [place] Prescriptions: New promethazine-DM 6.25-15 mg/5 mL syrup 5 ml PO Q4-6H PRN (Reason: cough) Qty: 120 0RF No Action meloxicam 15 mg tablet Follow-up/Referrals: PHYSICIAN NOT ON STAFF,NONSTAFF [Primary Care Provider] Time of Disposition: 10:27
[2025-06-10 11:48] LABS: EDCOVIDSCREEN Negative (Negative); EDINFLUASCREEN Negative (Negative); EDINFLUBSCREEN Negative (Negative)
== END 2025-06-07 10:33 | disposition home or self-care (01) ==
PROVIDERS: Emergency Provider Nurse Practitioner
DX: J06.9 Acute upper respiratory infection, unspecified (principal); Z20.822 Contact with and (suspected) exposure to COVID-19; F12.90 Cannabis use, unspecified, uncomplicated
CPT/HCPCS: 87426; 87804; 99213; G0463